=== PATIENT | male | born 1950 | race African-American/Black ===

== ENCOUNTER 2024-07-27 14:14 | Emergency (ER) | payer OTHER, MEDICARE ==
[~2024-07-27] VITALS: Ht 180.3 cm; Wt 61.0 kg
[~2024-07-27 14:14] MED LIST: AMLO10TA4 PO; BUDE6HFA; DOCU-276; HYDR25TA PO; MONT-39 PO; NAPR-1176 PO; PRED10TA PO; SIMV-46 PO; TAMS-11; TERA10CA4 PO; TIOT18CA3
[2024-07-27 14:19] VITALS: TEMP 98.5; O2SAT 97
[2024-07-27 15:07] VITALS: PULSE 80; RESP 18
[2024-07-27] MEDS: IPRATROPIUM/ALBUTEROL 0.5-3(2.5)MG/3ML NEB HHN ONE (15:07)
[2024-07-27 15:27] VITALS: BP 129/62; PULSE 70; RESP 14; O2SAT 100
== END 2024-07-27 15:30 ==
LOC: ER 14:19
DX: J44.9 Chronic obstructive pulmonary disease, unspecified (principal); I10 Essential (primary) hypertension; Z79.899 Other long term (current) drug therapy; Z79.51 Long term (current) use of inhaled steroids; Z88.5 Allergy status to narcotic agent
CPT/HCPCS: 94640; 99283; Z7610 ×3

== ENCOUNTER 2024-09-03 13:47 | Emergency (ER) | payer OTHER, MEDICAID ==
[~2024-09-03] VITALS: Ht 182.9 cm; Wt 100.0 kg
[2024-09-03 15:01] LABS: BASOPHILS % 0.5 % (0.0-2.0); EOSINOPHILS % 3.1 % (0.0-5.0); HEMATOCRIT. 32.8 % (42.0-52.0); HEMOGLOBIN. 10.8 g/dL (14.0-18.0); LYMPHOCYTES % 30.3 % (20.0-50.0); MEAN CORPUSCULAR HEMOGLOBIN 27.9 pg (28.0-32.0); MEAN CORPUSCULAR HGB CONC 32.8 g/dL (31.0-37.0); MEAN PLATELET VOLUME 7.5 fl (7.4-10.4); MONOCYTES % 10.7 % (2.0-8.0); NEUTROPHILS % 55.4 % (40.0-76.0); PLATELET 406 x1000/uL (130-400); RED BLOOD CELL COUNT 3.86 mill/uL (4.7-6.1); RED CELL DISTRIBUTION WIDTH 16.1 % (11.6-14.6); WHITE BLOOD COUNT 6.8 x1000/uL (4.5-11.0)
[2024-09-03] MEDS: ACETAMINOPHEN 325MG TABLET PO ONE (15:02)
[2024-09-03] MEDS: METHYLPREDNISOLONE SOD SUCC 125MG/2ML (ACT-O-VIAL) IV STA (15:02)
[2024-09-03] MEDS: KETOROLAC 15MG/ML VIAL IV ONE (15:02)
[2024-09-03 15:15] LABS: CHLORIDE 104 mEq/L (98-107); POTASSIUM 3.4 mEq/L (3.5-5.1); SODIUM 141 mEq/L (136-145)
[2024-09-03 15:16] LABS: CALCIUM 9.5 mg/dL (8.7-10.4); CARBON DIOXIDE 30 mEq/L (21-32)
[2024-09-03 15:21] LABS: CREATININE 0.8 mg/dL (0.6-1.3); GLUCOSE 103 mg/dL (70-105); UREA NITROGEN BLOOD 16 mg/dL (9-23)
[2024-09-03 15:23] LABS: TROPONIN I HIGH SENSITIVITY 9 ng/L (3.0-53)
[2024-09-03] MEDS: IPRATROPIUM BROMIDE (0.02%) 0.5MG/2.5ML NEB HHN STA (15:38)
[2024-09-03] MEDS: ALBUTEROL (0.083%) 2.5MG/3ML NEB HHN STA (15:38)
[2024-09-03 15:43] VITALS: PULSE 75; RESP 12; O2SAT 94
[2024-09-03 21:42] VITALS: BP 144/67; PULSE 71; RESP 12; TEMP 36.72516; O2SAT 94
== END 2024-09-03 21:42 | disposition left against medical advice (07) ==
LOC: ER 13:47
DX: J44.1 Chronic obstructive pulmonary disease with (acute) exacerbation (principal); R60.0 Localized edema; L97.509 Non-pressure chronic ulcer of other part of unspecified foot with unspecified severity; R26.9 Unspecified abnormalities of gait and mobility; I10 Essential (primary) hypertension; E78.00 Pure hypercholesterolemia, unspecified; K21.9 Gastro-esophageal reflux disease without esophagitis; Z20.822 Contact with and (suspected) exposure to COVID-19; Z79.51 Long term (current) use of inhaled steroids; Z79.899 Other long term (current) drug therapy; Z88.5 Allergy status to narcotic agent
CPT/HCPCS: 99285; 94070; 96374; 71045; 96375; 87426; 80048; 83880; 85025; 84484; 87804 ×2; 36415; 93005; 98960; 94640; J1885; J2919; 94664